=== PATIENT | male | born 1955 | race Caucasian/White ===

== ENCOUNTER → 2019-12-15 | Outpatient (CLI) | payer OTHER | LOC: LAB 12-14 08:25 | PROVIDERS: ATTEND Family Medicine | DX: Z20.828 Contact with and (suspected) exposure to other viral communicable diseases (principal); R05 Cough; R09.81 Nasal congestion; R42 Dizziness and giddiness; R43.8 Other disturbances of smell and taste ==

== ENCOUNTER → 2020-04-20 | Outpatient (CLI) | payer OTHER | LOC: LAB 07:28 | PROVIDERS: ATTEND Family Medicine | DX: Z20.828 Contact with and (suspected) exposure to other viral communicable diseases (principal) ==

== ENCOUNTER → 2020-08-17 | Outpatient (CLI) | payer OTHER ==
[~2020-08-17] MED LIST: ASA81BEC PO; CARVEDILOL25 MG PO; CLONAZEPAM 0.50.5 M1 PO; COZAAR 25 MG TA25 M1 PO; FAMOTIDINE40 MG PO; FOLIC ACID1 MG PO; FUROSEMIDE 40 M40 M1 PO; HYDROCODON-ACE1 EAC7 PO; IMDUR 30 MG TAB30 M1 PO; INSULIN AS100 UNIT/1 SUBQ; IPRAT-ALBUT 0.5-3 ML NEB; KLOR-CON 10 ER10 MEQ PO; KLOR-CON M1010 MEQ PO; LIPITOR 40 MG T40 M1 PO; METFORMIN HCL500 M3 PO; NITROSTAT0.4 M1 SUBLING; PAROXETINE HCL40 MG PO; PROAIR HFA8.5 GM INH; PROTONIX40 M2 PO; SPIRIVA18 MCG INH; TIZANIDINE HCL 22 M1 PO; TRESIBA FL200 UNIT/1 SUBQ
== END ==
LOC: SJCVCIMAG 10:45
PROVIDERS: ATTEND Internal Medicine Cardiovascular Disease
DX: I25.89 Other forms of chronic ischemic heart disease (principal); I25.10 Atherosclerotic heart disease of native coronary artery without angina pectoris

== ENCOUNTER → 2020-08-24 | Outpatient (CLI) | payer OTHER | LOC: SJCVC 11:15 | PROVIDERS: ATTEND Internal Medicine Cardiovascular Disease | DX: R94.31 Abnormal electrocardiogram [ECG] [EKG] (principal); I25.810 Atherosclerosis of coronary artery bypass graft(s) without angina pectoris; I11.0 Hypertensive heart disease with heart failure; I50.32 Chronic diastolic (congestive) heart failure; E78.2 Mixed hyperlipidemia; R94.39 Abnormal result of other cardiovascular function study; R07.9 Chest pain, unspecified; I25.5 Ischemic cardiomyopathy; J44.9 Chronic obstructive pulmonary disease, unspecified; E11.9 Type 2 diabetes mellitus without complications; I25.10 Atherosclerotic heart disease of native coronary artery without angina pectoris; G47.33 Obstructive sleep apnea (adult) (pediatric); F11.10 Opioid abuse, uncomplicated; F17.200 Nicotine dependence, unspecified, uncomplicated; Z79.82 Long term (current) use of aspirin; Z79.4 Long term (current) use of insulin; Z95.1 Presence of aortocoronary bypass graft; Z79.899 Other long term (current) drug therapy; Z88.1 Allergy status to other antibiotic agents ==

== ENCOUNTER 2020-09-01 07:55 | Observation (INO) | payer OTHER ==
[~2020-09-01] VITALS: Ht 167.6 cm; Wt 90.8 kg
[2020-09-01] VITALS (10 sets, daily range): BP systolic 112–148; BP diastolic 59–98
[2020-09-01 09:17] LABS: HEMATOCRIT 29.8 % (42.0-52.0); HEMOGLOBIN 10.8 gm/dL (14.0-18.0); MCH 34.7 pg (26.0-34.0); MCHC 36.3 g/dL (28.0-37.0); MCV 95.8 fL (80.0-100.0); RBC 3.11 mil/uL (4.50-6.00); RDW 16.9 % (10.5-14.5); WBC 7.2 thou/uL (4.0-11.0)
[2020-09-01 09:25] LABS: CREATININE 1.8 mg/dL (0.7-1.3); POTASSIUM 4.8 mmol/L (3.5-5.1)
--- NOTE | 2020-09-01 10:45 | EKG ---
[place] [address] [employer] [place] [address] ELECTROCARDIOGRAM REPORT Name: VIVIAN HANKINS Room #: [facility]#: [id number] Admission: 09/01/20 Attend Phys: Taj Allan MD, Discharge: Date of : 51 Report #: [id number] 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
[2020-09-01] MEDS ORDERED: CLOPIDOGREL75 MG PO (16:47)
--- NOTE | 2020-09-01 17:09 | NUR ---
PT CARE ASSUMED AT 1430. ASSESSMENTS CHARTED. MEDICATIONS CHARTED. RAC IV. SINUS RHYTHM. RT GROIN, MYNX; STENT PLACED PROXIMAL LAD. HEMOSTASIS AT 1200; BEDREST UNTIL 1500. UP AD MELANIE.
--- NOTE | 2020-09-01 17:51 | CATHLAB ---
[facility] [address] [place] [address] INVASIVE PROCEDURE REPORT Name: VIVIAN HANKINS Room #: 209-P [facility] Gifty Bueno#: [id number] Admission: 09/01/20 Attend Phys: Taj Allan MD, Discharge: Date of : 51 Report #: [id number] THIS REPORT FOR: cc: Vito Rausch James A. DO Mancuso, Gerald M. MD [facility] ~ APPROVED REPORT Study performed: 09/01/2020 09:55:42 Patient Details Patient Status: Out-Patient Room #: The patient is a 65 year-old male Event Personnel Taj Allan Osd Clerk, Sayra Orantes RN RN, Josi Meredith Monitor, Vy Zheng RTR Scrub Procedures Performed Art Access - R femoral artery* Left Heart Cath Coronaries, Bypass Grafts 2727947 LHCCORCABG 11804 Initial Mod Sed Same Phys/QHP Gr5y 279945 40580 Mod Sed Same Phys/QHP Ea 488593 HALIE Place w/wo Plasty Single LAD 388008 Hemostasis w/ Mynx Indication Chest pain Procedure Narrative The Right Groin^ was infiltrated with subcutaneous anesthesia. A PINNACLE 6FR Sheath #[id number] sheath was inserted into the RFA^. Coronary angiography was performed using coronary diagnostic catheters. The right coronary system was accessed and visualized with a JR4 catheter. The left coronary system was accessed and visualized with a JL4 catheter. The left ventricle was accessed and visualized with a ANGLE PIG catheter. There was no hematoma. SVG TO LAD PATENT, SVG TO PDA ACCLUDED, SVG TO OM 1 ACCLUDED. Intraoperative Conscious Sedation Sedation start time: 1111 Case end Time: 1212 Fentanyl 50 mcg Versed 1 mg Fluoro Time: 12.40 minutes Dose: DAP 32100.70 cGycm2 2070 mGy [facility] [place] [place] [address] INVASIVE PROCEDURE REPORT Name: VIVIAN HANKINS Room #: 209-P [facility]#: [id number] Admission: 09/01/20 Attend Phys: Taj Allan, Discharge: Date of : 51 Report #: [id number] Contrast Type and Amount: Visipaque 130 ml Hemodynamics The aortic pressure is 147/56 mmHg with a mean of 86 mmHg. The left ventricular pressure is 185/3 mmHg with a mean of mmHg. The left ventricular end diastolic pressure is 14 mmHg. PCI Technique Lesion Percutaneous coronary intervention was performed on the first diagnonal branch segment. A LAUNCHER 6FR EBU 3.75 #[id number] Guide Catheter was used to engage the LAD ostium. A Luge Wire .014 x 182CM #[id number] Interventional Guidewire was used to cross the lesion. BALLOON DILATION A Balloon catheter Sprinter OTW 2.25 x 12 #[id number] was inserted and inflated up to 18.00atm for 33seconds. Additional Inflation: 22.00atm for 35seconds. NC TREK 2.0FXY67KQ BALLOON WAS INFLATED AT 22 TARA FOR 47SEC/MIN. STENT DEPLOYMENT A stent RESOLUTE JG OTW 2.5 X 12 #[id number] was inserted and inflated up to 22.00atm for 47seconds. Conclusion #1. Successful PTCA stent of the proximal LAD highly calcified subtotaled giving rise to a moderate diagonal branch LAD occludes placement of a 2.5 x 12 resolute stent postdilated 2.6 mm AYAKA grade III flow into the diagonal system. #2 calcified left main with mild disease giving rise to LAD and circumflex. #3 the LAD high-grade proximal and then occluded this is stented as noted in #1. This does fill a small to moderate diagonal system. #4 [place] circumflex with extensive prior multiple stents 40 to 50% in-stent restenosis in the distal stent filling a moderate sized bifurcating OM system #5 [place] is widely patent giving rise to the LAD which is a relatively small but briskly filling and briskly filling the septal system. There is no diagonal filling from this LAD. #6 [place] right coronary artery occluded #7 PDA graft occluded #8 SVG to circumflex OM occluded #9 normal left jugular size with inferior basilar infarct EF 45% range Recommendations and plan: Continue aggressive risk factor [address] [address] INVASIVE PROCEDURE REPORT Name: VIVIAN HANKINS Room #: 209-P [facility] [place] ..#: [id number] Admission: 09/01/20 Attend Phys: Taj Allan, Discharge: Date of : 51 Report #: [id number] modification. Patient hemodynamically stable pain-free transfer to CCU to follow post coronary stent protocol. <ELECTRONICALLY SIGNED> By: Taj Allan MD, FACC 09/01/201750 50 50 Taj Allan MD, FACC /INF
[2020-09-02 00:05] VITALS: BP 160/68
[2020-09-02 04:14] VITALS: BP 146/63
--- NOTE | 2020-09-02 04:34 | NUR ---
PT IS ALERT AND ORIENTED X4. LUNGS ARE CLEAR ON ROOM AIR. PT WANTED A SLEEPING PILL AND ONE GIVEN RESTED SOME THROUGH OUT THE NIGHT. REQUESTING PAIN MEDS. TYLENOL GIVEN. PT REPORTS CHRONIC PAIN TAKES HYDRO AND SCRIP FOR MJ. INFORMED HIM TO DISCUSS WITH PHYSICAN. GROIN SITE IS CLEAN DRY AND INTACT. NO HEMATOMA. ABDOMEN IS ROUND BOWEL SOUNDS ACTIVE. WILL CONTINUE TO MONITOR AND ASSESS PER NURSING.
[2020-09-02 04:55] LABS: HEMATOCRIT 24.9 % (42.0-52.0); HEMOGLOBIN 9.3 gm/dL (14.0-18.0); MCH 35.4 pg (26.0-34.0); MCHC 37.3 g/dL (28.0-37.0); MCV 94.8 fL (80.0-100.0); RBC 2.63 mil/uL (4.50-6.00); RDW 17.1 % (10.5-14.5)
[2020-09-02 05:09] LABS: ALBUMIN 3.9 g/dL (3.4-5.0); CALCIUM 8.9 mg/dL (8.5-10.1); CREATININE 1.1 mg/dL (0.7-1.3); POTASSIUM 4.1 mmol/L (3.5-5.1); TOTAL BILIRUBIN 1.3 mg/dL (0.2-1.0); TOTAL PROTEIN 6.8 g/dL (6.4-8.2); TROPONIN-I 0.22 ng/mL (<0.06)
[2020-09-02 08:00] VITALS: BP 16/87
[2020-09-02 09:50] VITALS: BP 164/87
--- NOTE | 2020-09-02 10:45 | NUR ---
ASSESSMENT CHARTED - MEDS PER MAR - UP AD MELANIE IN ROOM WITH THE USE OF A CANE - STEADY ON FEET. DIMPLE DIET AND FLUIDS. NO CO'S OF NAUSEA. GROIN SITE C/D/I. PT HOME THIS AM - INSTRUCTION RE HOME MEDS/ CARE GIVEN TO PATIENT - STATED UNDERSTANDING OF INSTRUCTION GIVEN. LEFT UNIT VIA HEELCHAIR ACCOMPANIEND BY STAFF - HOME VIA PVT VEHICLE WITH - NO CO'S AT TIME OF D/C.
--- NOTE | 2020-09-02 11:16 | EKG ---
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
== END 2020-09-02 10:45 | disposition home or self-care (01) ==
LOC: CATH 07:55 → 2N 15:01
PROVIDERS: Nurse Practitioner Adult Health; ADMIT Internal Medicine Cardiovascular Disease; ATTEND Internal Medicine Cardiovascular Disease
DX: I25.10 Atherosclerotic heart disease of native coronary artery without angina pectoris (principal); R07.89 Other chest pain; E78.5 Hyperlipidemia, unspecified; I10 Essential (primary) hypertension; E78.00 Pure hypercholesterolemia, unspecified; E11.9 Type 2 diabetes mellitus without complications; I25.5 Ischemic cardiomyopathy; R94.39 Abnormal result of other cardiovascular function study; Z86.73 Personal history of transient ischemic attack (TIA), and cerebral infarction without residual deficits; Z95.1 Presence of aortocoronary bypass graft

== ENCOUNTER → 2021-03-06 | Outpatient (CLI) | payer OTHER ==
[~2021-03-06] MED LIST changes: +CLOPIDOGREL75 MG PO
== END ==
LOC: SJCVC 13:49
PROVIDERS: ATTEND Internal Medicine Cardiovascular Disease
DX: R94.31 Abnormal electrocardiogram [ECG] [EKG] (principal); I25.810 Atherosclerosis of coronary artery bypass graft(s) without angina pectoris; I65.23 Occlusion and stenosis of bilateral carotid arteries; I50.32 Chronic diastolic (congestive) heart failure; I25.5 Ischemic cardiomyopathy; E78.2 Mixed hyperlipidemia; J44.9 Chronic obstructive pulmonary disease, unspecified; E11.9 Type 2 diabetes mellitus without complications; F17.200 Nicotine dependence, unspecified, uncomplicated; I35.0 Nonrheumatic aortic (valve) stenosis; K21.9 Gastro-esophageal reflux disease without esophagitis; E78.5 Hyperlipidemia, unspecified; I10 Essential (primary) hypertension; G47.33 Obstructive sleep apnea (adult) (pediatric); I65.29 Occlusion and stenosis of unspecified carotid artery; Z79.4 Long term (current) use of insulin; Z79.82 Long term (current) use of aspirin; Z79.899 Other long term (current) drug therapy